=== PATIENT | female | born 1965 | race Caucasian/White ===

== ENCOUNTER 2017-03-30 18:17 | Emergency (ER) | payer OTHER ==
[~2017-03-30] VITALS: Ht 165.1 cm; Wt 127.5 kg
[2017-03-30 18:22] VITALS: Ht 165.1 cm; Wt 127.5 kg
[2017-03-30] MEDS ORDERED: SULF1TAB31 PO (19:46)
[2017-03-30] MEDS ORDERED: CEPH-443 PO (19:46)
[2017-03-30 19:54] VITALS: BP 155/88; PULSE 95; RESP 16; TEMP 98.2
--- NOTE | 2017-03-30 23:09 | ERD ---
ER Documentation Chief Complaint Date/Time DATE: 03/30/17 TIME: 23:02 Chief Complaint left big toe injury yesterday - chipped nail with bleeding (pt diabetic) HPI 51-year-old female patient with a past medical history of hypertension and diabetes presents to the ED complaining of a left nail bed great toe injury that occurred yesterday. Reports that she accidentally got her nail stuck and it accidentally partially tore off. Denies stubbing her toe. Reports that she still able to ambulate. States that she has pain to the nailbed region. Reports that she also tried cutting her nail with slight relief of her symptoms. Denies any loss of sensation, loss of range of motion, nausea, vomiting, fever, chills. ROS All systems reviewed and are negative except as per history of present illness. Medications Home Meds Active Scripts Cephalexin* (Keflex*) 500 Mg Capsule, 500 MG PO QID for 7 Days, CAP Prov:LUKE SANTANA PA-C 03/30/17 Sulfamethoxazole/Trimethoprim* (Bactrim Ds* Tablet) 1 Each Tablet, 1 TAB PO BID for 7 Days, #14 TAB Prov:LUKE SANTNAA PA-C 03/30/17 Allergies Allergies: Coded Allergies: No Known Allergy (Unverified , 03/30/17) PMhx/Soc History of Surgery: No Anesthesia Reaction: No Hx Neurological Disorder: No Hx Respiratory Disorders: No Hx Cardiac Disorders: No Hx Psychiatric Problems: No Hx Miscellaneous Medical Probl: Yes (DM) Hx Alcohol Use: No Hx Substance Use: No Hx Tobacco Use: No Smoking Status: Never smoker Physical Exam Vitals Vital Signs Date Time Temp Pulse Resp B/P Pulse Ox O2 Delivery O2 Flow Rate FiO2 03/30/17 19:54 98.2 95 16 155/88 95 Room Air 03/30/17 18:22 97.4 96 20 124/73 97 Physical Exam Const: Esr-dhe-jtutclgia, well-nourished. In no acute distress. Head: Atraumatic, normocephalic Eyes: Normal Conjunctiva without injection ENT: Normal external ear, nose and mouth. Neck: Full range of motion. No meningismus. Resp: Clear to auscultation bilaterally. No wheezing, rhonchi, rales, or crackles. No accessory muscle use. No retractions. Cardio: Regular rate and rhythm, no murmurs Skin: No petechiae or rashes Back: No midline tenderness. No CVA tenderness. Ext: No cyanosis, or edema. Cap refill less than 2 seconds. Distal pulses intact bilaterally. Left nail bed injury with slight erythema. No bleeding noted. No purulent discharge. Slight warmth to touch. Neur: Awake and alert. Normal gait and coordination. Muscle strength 5/5. Sensation intact bilaterally. Psych: Normal Mood and Affect Procedures/MDM This is a 51-year-old female patient with a significant history of SVT, hypertension, diabetes presents to the ED complaining of a left nail bed injury to the left great toe. Patient is afebrile and nontoxic-appearing. Patient has normal vital signs. A foot x-ray was discussed with the patient at this time and she says she stated that she does not stop her toe, she is ambulating without difficulty, it is not indicated at this time. Patient's left great toe was cleaned and irrigated with normal saline. A clean dressing was applied. She was strictly instructed to follow-up with a satellite dish technician for further evaluation and treatment. Low suspicion for scabies, SJS/TEN, erythema multiforme, sepsis, cellulitis, necrotizing fascitis, gangrene, meningococcemia or other emergent conditions. Patient's extremity symptoms have stabilized while they have been evaluated in the department and are appropriate for outpatient follow up. No evidence of fractures, dislocations, compartment syndrome, neurologic injury, vascular injury, open joint, open fracture, tendon laceration, septic arthritis, osteomyelitis, DVT, foreign body, or other emergent conditions. = Discharge medications: Keflex, Bactrim Follow up with primary care physician in 1-2 days. Instructed patient to return to the ED sooner for any worsening symptoms. Patient's questions were answered. Patient understood and agreed with discharge plan. Patient discharged stable. Departure Diagnosis: Primary Impression: Injury of nail bed of toe Condition: Stable Patient Instructions: Nail Avulsion, Partial Referrals: COMMUNITY CLINICS YOU HAVE RECEIVED A MEDICAL SCREENING EXAM AND THE RESULTS INDICATE THAT YOU DO NOT HAVE A CONDITION THAT REQUIRES URGENT TREATMENT IN THE EMERGENCY DEPARTMENT. FURTHER EVALUATION AND TREATMENT OF YOUR CONDITION CAN WAIT UNTIL YOU ARE SEEN IN YOUR DOCTORS OFFICE WITHIN THE NEXT 1-2 DAYS. IT IS YOUR RESPONSIBILITY TO MAKE AN APPOINTMENT FOR FOLOW-UP CARE. IF YOU HAVE A PRIMARY DOCTOR --you should call your primary doctor and schedule an appointment IF YOU DO NOT HAVE A PRIMARY DOCTOR YOU CAN CALL OUR PHYSICIAN REFERRAL HOTLINE AT IF YOU CAN NOT AFFORD TO SEE A PHYSICIAN YOU CAN CHOSE FROM THE FOLLOWING [facility] [address] [facility] [address] [facility] [address] [facility] [address] [facility] [address] [facility]. [facility] [address] [facility]. [facility] YOU HAVE RECEIVED A MEDICAL SCREENING EXAM AND THE RESULTS INDICATE THAT YOU DO NOT HAVE A CONDITION THAT REQUIRES URGENT TREATMENT IN THE EMERGENCY DEPARTMENT. FURTHER EVALUATION AND TREATMENT OF YOUR CONDITION CAN WAIT UNTIL YOU ARE SEEN IN YOUR DOCTORS OFFICE WITHIN THE NEXT 1-2 DAYS. IT IS YOUR RESPONSIBILITY TO MAKE AN APPOINTMENT FOR FOLOW-UP CARE. IF YOU HAVE A PRIMARY DOCTOR --you should call your primary doctor and schedule and appointment IF YOU DO NOT HAVE A PRIMARY DOCTOR YOU CAN CALL OUR PHYSICIAN REFERRAL HOTLINE AT . IF YOU CAN NOT AFFORD TO SEE A PHYSICIAN YOU CAN CHOSE FROM THE FOLLOWING [facility]: [facility] [address] [place] [address] [address] [place] [address] [facility] [address] [place] [address] [facility] URGENT CARE/SPECIALTIES Additional Instructions: Due to your Diabetes it is important for you to manage your blood sugars everyday and take the antibiotics prescribed to complete the course as you sustained a injury to your nail of her left toe. It is important for you to follow-up with a satellite dish technician tomorrow for a wound check and for further evaluation and treatment. Return to this facility if you are not improving as expected -worsening redness , warmth to touch, swelling, fever, chills, etc. LUKE SANTANA PA-C Mar 30, 2017 23:09
== END 2017-03-30 19:53 | disposition home or self-care (01) ==
LOC: FTE 18:17
DX: S91.202A Unspecified open wound of left great toe with damage to nail, initial encounter (principal); I10 Essential (primary) hypertension; E11.9 Type 2 diabetes mellitus without complications; W45.0XXA Nail entering through skin, initial encounter; Y92.9 Unspecified place or not applicable
CPT/HCPCS: 99284